=== PATIENT | female | born 1960 | race Caucasian/White ===

== ENCOUNTER 2016-09-07 09:49 | Emergency (ER) | payer BC ==
[2016-09-07 11:34] VITALS: BP 128/55
--- NOTE | 2016-09-07 11:51 | UC ---
Respiratory Complaint HPI - HPI Summary HPI Summary: c/o loss of voice, chest burning w/ cough, and nasal drainage, feels tired and hot. body aches 3 days ago started. throat pain with swallowing. [ End ] - History of Current Complaint Chief Complaint: UCRespiratory Stated Complaint: LOST VOICE,SORE THROAT,COUGH,FEVER Time Seen by Provider: 09/07/16 11:36 Hx Obtained From: Patient Hx Last Menstrual Period: 12/04/2012 ?: No Onset/Duration: Gradual Onset Timing: Constant Severity Initially: Mild Severity Currently: Moderate Associated Signs And Symptoms: Positive: Fever, URI, Nasal Congestion, Hoarseness - Risk Factors Pulmonary Embolism Risk Factors: Negative Cardiac Risk Factors: Negative Pseudomonas Risk Factors: Negative Tuberculosis Risk Factors: Negative - Allergies/Home Medications Allergies/Adverse Reactions: Allergies Allergy/AdvReac Type Severity Reaction Status Date / Time Clarithromycin [From Biaxin] Allergy Severe Abdominal Verified 09/07/16 11:36 Pain Erythromycin Allergy Severe lips turn Verified 09/07/16 11:36 blue Prednisone Allergy Severe Shortness Verified 09/07/16 11:36 of Breath Penicillins Allergy Intermediate syncope Verified 09/07/16 11:36 Sulfa Drugs Allergy Intermediate Rash Verified 09/07/16 11:36 Latex Allergy SENSITIVITY- Verified 09/07/16 11:36 RASH, PEANUTS Allergy Severe ANAPHYLACTI Uncoded 09/07/16 11:36 C tetracyclene Allergy Severe lips turn Uncoded 09/07/16 11:36 blue Home Medications: Home Medications Estradiol (NF) 0.5 mg PO DAILY 09/07/16 [History Confirmed 09/07/16] PMH/Surg Hx/FS Hx/Imm Hx Previously Healthy: Yes Endocrine History Of: Reports: Diabetes - borderline- NO MEDICATION FOR, Thyroid Disease - hypothyroid Cardiovascular History Of: Reports: Hypertension - ON MEDICATION FOR Denies: Cardiac Disorders Respiratory History Of: Denies: COPD, Asthma GI/ History Of: Reports: Kidney Stones - HX OF IN THE PAST Denies: Ulcer Neurological History Of: Reports: Migraine - TAKES PROPRANOLOL FOR Psychological History Of: Reports: Depression - ON MEDICATION FOR - Surgical History Surgical History: Yes Surgery Procedure, Year, and Place: Fatty tumor removed from LEFT abdomen- [place]. hysterectomy-[facility]. SINUS SURGERY- 15 YEARS AGO- [place]. TUBAL LIGATION- 21 YEARS AGO- [place]. TONSILLECTOMY A CHILD. Removal of abd mass at [facility] - Family History Known Family History: Positive: Cardiac Disease, Diabetes - Social History Occupation: Unemployed Lives: With Family Alcohol Use: Rare Substance Use Type: None Smoking Status (MU): Former Smoker Amount Used/How Often: 1/2 PPD X 20 YEARS Have You Smoked in the Last Year: No When Did the Patient Quit Smoking/Using Tobacco: 10 YEARS AGO - Immunization History Most Recent Influenza Vaccination: JUN 2015 Review of Systems Constitutional: Fever, Chills, Fatigue Skin: Negative Eyes: Negative ENT: Sore Throat, Ear Ache, Nasal Discharge Respiratory: Cough Cardiovascular: Negative Gastrointestinal: Negative Genitourinary: Negative Motor: Negative Neurovascular: Negative Musculoskeletal: Myalgia Neurological: Negative Psychological: Anxious All Other Systems Reviewed And Are Negative: Yes Physical Exam Triage Information Reviewed: Yes Appearance: Well-Appearing, No Pain Distress Vital Signs: Initial Vital Signs Temp 98.5 F 09/07/16 11:30 Pulse 62 09/07/16 11:30 Resp 14 09/07/16 11:30 BP 128/55 09/07/16 11:30 Pulse Ox 99 09/07/16 11:30 Vital Signs Reviewed: Yes Eye Exam: Normal ENT Exam: Normal ENT: Positive: Normal ENT inspection, Hearing grossly normal, Pharynx normal, Nasal congestion, Nasal drainage, TMs normal. Negative: Pharyngeal erythema, TM bulging, Tonsillar swelling, Tonsillar exudate, Trismus Dental Exam: Normal Neck exam: Normal Neck: Positive: 1 Respiratory Exam: Normal Respiratory: Positive: Chest non-tender, Lungs clear, Normal breath sounds, No respiratory distress, No accessory muscle use. Negative: Respiratory distress Cardiovascular Exam: Normal Musculoskeletal Exam: Normal Neurological Exam: Normal Psychological Exam: Normal Skin Exam: Normal Diagnostic Evaluation - Laboratory O2 Sat by Pulse Oximetry: 99 Respiratory Course/Dx - Differential Dx/Diagnosis Differential Diagnosis/HQI/PQRI: Bronchitis, Lower Resp Infection, Sinusitis Provider Diagnoses: Viral Pharyngitis / URI Discharge - Discharge Plan Condition: Good Disposition: HOME Prescriptions: Fluticasone NASAL SPRAY 50MCG* [Flonase NASAL SPRAY 50MCG*] 2 spray BOTH NARES DAILY #1 btl Lidocaine 2% VISCOUS* 5 ml PO Q3HR PRN #1 btl PRN Reason: Pain Patient Education Materials: Pharyngitis (ED) Referrals: FLORENCIO Morley [Primary Care Provider] - 3 Days Additional Instructions: You have been diagnosed with a viral pharyngitis / viral infection at this time.
== END 2016-09-07 12:01 | disposition home or self-care (01) ==
LOC: UCCORT 09:49
DX: J02.8 Acute pharyngitis due to other specified organisms (principal); I10 Essential (primary) hypertension; F32.9 Major depressive disorder, single episode, unspecified; Z87.891 Personal history of nicotine dependence; Z88.0 Allergy status to penicillin; Z88.1 Allergy status to other antibiotic agents; Z88.2 Allergy status to sulfonamides; Z88.8 Allergy status to other drugs, medicaments and biological substances
CPT/HCPCS: 99212; G0463

== ENCOUNTER 2016-09-11 09:19 | Emergency (ER) | payer BC ==
[2016-09-11 10:51] VITALS: BP 124/57
[2016-09-11] MEDS ORDERED: Acetaminophen TAB* 325 MG PO ONE (11:01)
--- NOTE | 2016-09-11 11:07 | UC ---
Respiratory Complaint HPI - HPI Summary HPI Summary: Dx with viral illness on 09/07. now feels she is heavy chested, hard to breath, feverish. cough present. - History of Current Complaint Chief Complaint: UCRespiratory Stated Complaint: COUGH Time Seen by Provider: 09/11/16 10:37 Hx Obtained From: Patient Hx Last Menstrual Period: 12/04/2012 ?: No Onset/Duration: Sudden Onset, Lasting Days Timing: Constant Severity Initially: Moderate Severity Currently: Severe Pain Intensity: 8 Pain Scale Used: 0-10 Numeric Character: Cough: Productive Aggravating Factors: Deep Breaths, Recumbent Position Alleviating Factors: Nothing Associated Signs And Symptoms: Positive: Dyspnea, Fever, Wheezing, URI, Hoarseness - Risk Factors Pulmonary Embolism Risk Factors: Negative - Allergies/Home Medications Allergies/Adverse Reactions: Allergies Allergy/AdvReac Type Severity Reaction Status Date / Time Clarithromycin [From Biaxin] Allergy Severe Abdominal Verified 09/11/16 10:37 Pain Erythromycin Allergy Severe lips turn Verified 09/11/16 10:37 blue Prednisone Allergy Severe Shortness Verified 09/11/16 10:37 of Breath Penicillins Allergy Intermediate syncope Verified 09/11/16 10:37 Sulfa Drugs Allergy Intermediate Rash Verified 09/11/16 10:37 Latex Allergy SENSITIVITY- Verified 09/11/16 10:37 RASH, PEANUTS Allergy Severe ANAPHYLACTI Uncoded 09/11/16 10:37 C tetracyclene Allergy Severe lips turn Uncoded 09/11/16 10:37 blue Home Medications: Home Medications [id number] [Tylenol Sinus Congestion 5-325-200 mg] 2 tab PO ONCE PRN 09/11/16 [History Confirmed 09/11/16] PMH/Surg Hx/FS Hx/Imm Hx Previously Healthy: Yes Endocrine History Of: Reports: Diabetes - borderline- NO MEDICATION FOR, Thyroid Disease - hypothyroid Cardiovascular History Of: Reports: Cardiac Disorders - "cardiac event", Hypertension - ON MEDICATION FOR Respiratory History Of: Denies: COPD, Asthma GI/ History Of: Reports: Kidney Stones - HX OF IN THE PAST Denies: Ulcer Neurological History Of: Reports: Migraine - TAKES PROPRANOLOL FOR Psychological History Of: Reports: Depression - ON MEDICATION FOR - Surgical History Surgical History: Yes Surgery Procedure, Year, and Place: Fatty tumor removed from LEFT abdomen- [place]. hysterectomy-[facility]. SINUS SURGERY- 15 YEARS AGO- [place]. TUBAL LIGATION- 21 YEARS AGO- [place]. TONSILLECTOMY A CHILD. Removal of abd mass at [facility]. hysterectomy - Family History Known Family History: Positive: Cardiac Disease, Diabetes - Social History Alcohol Use: Rare Substance Use Type: None Smoking Status (MU): Former Smoker Amount Used/How Often: 1/2 PPD X 20 YEARS Have You Smoked in the Last Year: No When Did the Patient Quit Smoking/Using Tobacco: 10 YEARS AGO - Immunization History Most Recent Influenza Vaccination: JUN 2015 Review of Systems Constitutional: Fever Skin: Negative Eyes: Negative ENT: Negative Respiratory: Shortness Of Breath, Cough Cardiovascular: Negative Gastrointestinal: Negative Genitourinary: Negative Motor: Negative Neurovascular: Negative Musculoskeletal: Negative Neurological: Headache Psychological: Negative All Other Systems Reviewed And Are Negative: Yes Physical Exam Triage Information Reviewed: Yes Appearance: Well-Nourished, Ill-Appearing, Pain Distress Vital Signs: Initial Vital Signs Temp 98.1 F 09/11/16 10:40 Pulse 60 09/11/16 10:40 Resp 18 09/11/16 10:40 BP 124/57 09/11/16 10:40 Pulse Ox 100 09/11/16 10:40 Vital Signs Reviewed: Yes Eye Exam: Normal Eyes: Positive: Conjunctiva Clear ENT Exam: Normal ENT: Positive: Normal ENT inspection, Hearing grossly normal, Pharyngeal erythema, TMs normal Dental Exam: Normal Neck exam: Normal Neck: Positive: Supple, Nontender, No Lymphadenopathy Respiratory Exam: Normal Respiratory: Positive: Decreased breath sounds, Wheezing, Inspiration, Other: - tender on inspriation Cardiovascular Exam: Normal Cardiovascular: Positive: RRR, No Murmur, Pulses Normal Abdominal Exam: Normal Abdomen Description: Positive: Nontender, No Organomegaly, Soft Bowel Sounds: Positive: Present Musculoskeletal Exam: Normal Musculoskeletal: Positive: Strength Intact, ROM Intact, No Edema Neurological Exam: Normal Neurological: Positive: Alert, Muscle Tone Normal Psychological Exam: Normal Skin Exam: Normal UC Diagnostic Evaluation - Laboratory O2 Sat by Pulse Oximetry: 100 Respiratory Course/Dx - Course Course Of Treatment: hx obtained, ekg performed due to patients complaint, exam performed, chest xray obtained and is negative, tylenol given. meds prescribed. - Differential Dx/Diagnosis Differential Diagnosis/HQI/PQRI: Asthma, Bronchitis, Influenza, Laryngitis, Pneumothorax, Pulmonary Embolism, SARS, Sinusitis Provider Diagnoses: bronchitis Discharge - Discharge Plan Condition: Stable Disposition: HOME Prescriptions: Albuterol HFA INHALER* [Ventolin HFA Inhaler*] 1 - 2 puff INH Q4H PRN #1 mdi PRN Reason: Cough guaiFENesin/CODIEN 100MG-10MG* [Robitussin AC 100Mg-10Mg*] 10 ml PO BEDTIME PRN #100 udc MDD 10 ml PRN Reason: Cough Forms: *Work Release Additional Instructions: take the medications as prescibed, increase your fluid intake and get plenty of rest. Expect symptoms to last a few weeks.
--- NOTE | 2016-09-11 12:53 | RAD ---
INDICATION: Cough and chest pressure COMPARISON: None TECHNIQUE: PA and lateral views of the chest were obtained. FINDINGS: The heart and mediastinum are normal in size and contour. The lungs are grossly clear. There is no evidence of large pleural effusion. Visualized bones are normal for the patient's age. There is no radiographic evidence of free air beneath the diaphragm IMPRESSION: No radiographic evidence of acute cardiopulmonary disease.
== END 2016-09-11 12:59 | disposition home or self-care (01) ==
LOC: UCCORT 09:19
DX: J40 Bronchitis, not specified as acute or chronic (principal); Z88.1 Allergy status to other antibiotic agents; Z88.0 Allergy status to penicillin; Z88.2 Allergy status to sulfonamides; I10 Essential (primary) hypertension; Z87.891 Personal history of nicotine dependence
CPT/HCPCS: 71020; 93005; 99202; A9270-GY; G0463

== ENCOUNTER 2019-09-07 17:07 | Emergency (ER) | payer BC ==
[2019-09-07 19:07] VITALS: BP 137/63
[2019-09-07 19:25] LABS: Influenza A Molecular Negative (Negative); Influenza B Molecular Negative (Negative)
--- NOTE | 2019-09-07 20:08 | UC ---
FLU HPI - HPI Summary HPI Summary: 58-year-old female presents with 4 day history of fatigue, nasal congestion, sinus pressure, postnasal drip, sore throat, right ear pain, and dry nonproductive cough. States she was seen by her care provider earlier today and diagnosed with influenza although was never tested. 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 Denies fever, chills, body aches, ear drainage, dysphagia, chest pain, shortness of breath, wheezing, abdominal pain, nausea, vomiting, or diarrhea. - History of Current Complaint Chief Complaint: UCRespiratory Stated Complaint: FLU LIKE SYMPTOMS Time Seen by Provider: 09/07/19 19:31 Hx Obtained From: Patient Hx Last Menstrual Period: 12/04/2012 Pain Intensity: 0 - Allergy/Home Medications Allergies/Adverse Reactions: Allergies Allergy/AdvReac Type Severity Reaction Status Date / Time clarithromycin [From Biaxin] Allergy Severe Abdominal Verified 09/07/19 18:49 Pain erythromycin base Allergy Severe lips turn Verified 09/07/19 18:49 blue prednisone Allergy Severe Shortness Verified 09/07/19 18:49 of Breath Penicillins Allergy Intermediate syncope Verified 09/07/19 18:49 Sulfa (Sulfonamide Allergy Intermediate Rash Verified 09/07/19 18:49 Antibiotics) latex Allergy Unknown sensitivity Verified 09/07/19 18:49 ,rash PEANUTS Allergy Severe ANAPHYLACTI Uncoded 09/07/19 18:49 C tetracyclene Allergy Severe lips turn Uncoded 09/07/19 18:49 blue Home Medications: Home Medications Atorvastatin* [Lipitor*] 10 mg PO DAILY 09/07/19 [History Confirmed 09/07/19] Benzonatate CAP* [Tessalon 100 MG CAP*] 100 mg PO TID PRN 09/07/19 [History Confirmed 09/07/19] Pantoprazole TAB * [Protonix TAB*] 40 mg PO DAILY 09/07/19 [History Confirmed ] PMH/Surg Hx/FS Hx/Imm Hx Endocrine History: Dyslipidemia Cardiovascular History: Hypertension Respiratory History: Other - Reactive airway disease GI/ History: Gastroesophageal Reflux - Surgical History Surgical History: Yes Surgery Procedure, Year, and Place: Fatty tumor removed from LEFT abdomen- [place]. hysterectomy-[facility]. SINUS SURGERY- 15 YEARS AGO- [place]. TUBAL LIGATION- 21 YEARS AGO- [place]. TONSILLECTOMY A CHILD. Removal of abd mass at [facility]. hysterectomy. cholycystectomy - Family History Known Family History: Positive: Cardiac Disease, Diabetes - Social History Alcohol Use: None Substance Use Type: None Smoking Status (MU): Light Every Day Tobacco Smoker Amount Used/How Often: 1/2 PPD X 20 YEARS Have You Smoked in the Last Year: No When Did the Patient Quit Smoking/Using Tobacco: 10 YEARS AGO - Immunization History Most Recent Influenza Vaccination: JUN 2015 Review of Systems All Other Systems Reviewed And Are Negative: Yes Constitutional: Positive: Fatigue. Negative: Fever, Chills Skin: Negative: Rash Eyes: Negative: Drainage, Eye Redness ENT: Positive: Sore Throat, Ear Ache, Nasal Discharge, Sinus Congestion, Sinus Pain/Tenderness Respiratory: Positive: Cough. Negative: Shortness Of Breath Cardiovascular: Negative: Palpitations, Chest Pain Gastrointestinal: Negative: Abdominal Pain, Vomiting, Diarrhea, Nausea Genitourinary: Positive: Negative Musculoskeletal: Negative: Myalgia Neurological: Negative: Headache Is Patient Immunocompromised?: No Physical Exam - Summary Physical Exam Summary: GENERAL APPEARANCE: Alert and cooperative, and appears to be in no acute distress. EYES: Conjunctiva clear. No drainage. EARS: External auditory canals and tympanic membranes clear, hearing grossly intact. NOSE: Moderate nasal congestion. No nasal discharge. Maxillary sinus tenderness. THROAT: Pharyngeal cobblestoning with postnasal drip. Surgically absent tonsils. Uvula midline. NECK: Neck supple, non-tender without lymphadenopathy. CARDIAC: Normal S1 and S2. No S3, S4 or murmurs. Rhythm is regular. There is no peripheral edema, cyanosis or pallor. Extremities are warm and well perfused. Capillary refill is less than 2 seconds. Peripheral pulses intact. LUNGS: Clear to auscultation without rales, rhonchi, wheezing or diminished breath sounds. Dry nonproductive cough. ABDOMEN: Positive bowel sounds. Soft, nondistended, nontender. No guarding or rebound. No masses or hepatosplenomegally. MUSKULOSKELETAL: ROM intact to all extremities. No joint erythema or tenderness. Normal muscular development. Normal gait. SKIN: Skin normal color, texture and turgor with no lesions or eruptions. Triage Information Reviewed: Yes Vital Signs: Initial Vital Signs Temp 98.8 F 09/07/19 18:53 Pulse 80 09/07/19 18:53 Resp 16 09/07/19 18:53 BP 137/63 09/07/19 18:53 Pulse Ox 100 09/07/19 18:53 Vital Signs Reviewed: Yes Flu Course/Dx - Course Course Of Treatment: 58-year-old female presents with 4 day history of fatigue, nasal congestion, sinus pressure, postnasal drip, sore throat, right ear pain, and dry nonproductive cough. States she was seen by her care provider earlier today and diagnosed with influenza although was never tested. 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 Denies fever, chills, body aches, ear drainage, dysphagia, chest pain, shortness of breath, wheezing, abdominal pain, nausea, vomiting, or diarrhea. Afebrile. Vital signs stable. Patient had moderate nasal congestion, maxillary sinus tenderness, normal TMs, pharyngeal cobblestoning with postnasal drip, surgically absent tonsils, no cervical lymphadenopathy, clear bilateral breath sounds, dry nonproductive cough , and otherwise unremarkable exam. Rapid flu test was negative. Reviewed results with the patient. We discussed that her symptoms were likely from a viral upper respiratory infection however I did caution her that even with a negative flu she could potentially be infectious to her granddaughter and recommended that alternative caregiving be explored until her symptoms have subsided. I'm recommending continued symptomatic care at this time. She is to follow-up with her primary care provider in 5-7 days if symptoms are not improving. Anticipatory guidance warning symptoms were reviewed with the patient. Verbalizes understanding and agrees with plan of care. - Differential Dx/Diagnosis Differential Diagnosis/HQI/PQRI: Bronchitis, Influenza, Pneumonia, Upper Respiratory Infection Provider Diagnosis: Viral URI with cough Discharge ED - Sign-Out/Discharge Documenting (check all that apply): Patient Departure All imaging exams completed and their final reports reviewed: No Studies - Discharge Plan Condition: Stable Disposition: HOME Patient Education Materials: Upper Respiratory Infection (ED) Referrals: No Primary Care Phys,NOPCP [Primary Care Provider] - Additional Instructions: The flu test performed in the clinic today was negative. Your history and exam are consistent with a viral upper respiratory infection. Viral infections do not respond to antibiotics and are limited to the treatment of symptoms. Viral infections typically run their course in 7-10 days. Drink plenty of fluids to avoid dehydration especially if you are running any fever. Use a saline rinse kit such as Neti Pot or NeilMed at least twice a day to help thin secretions and promote drainage of the sinuses. Use over the counter fluticasone (Flonase) nasal spray 2 sprays each nostril once daily. Use the Tessalon Perles prescribed to you as directed as needed for cough. Take over the counter acetaminophen (Tylenol) or ibuprofen (Advil, Motrin) according to directions as needed for pain or fever. Use salt water gargles several times a day if you have a sore throat. You may also use Chloraseptic spray or Cepacol lonzenges according to directions which contain a numbing medication and can provide some temporary relief from your sore throat. Follow up with your primary care provider in 5-7 days if symptoms persist. Seek immediate medical attention in the emergency room if you have fever greater than 100.5 F despite taking acetaminophen or ibuprofen, have chest pain , difficulty breathing, are unable to swallow, or have any worsening of symptoms. - Billing Disposition and Condition Condition: STABLE Disposition: Home
== END 2019-09-07 20:21 | disposition home or self-care (01) ==
LOC: UCCORT 17:07
DX: J06.9 Acute upper respiratory infection, unspecified (principal); R05 Cough; K21.9 Gastro-esophageal reflux disease without esophagitis; I10 Essential (primary) hypertension; E78.5 Hyperlipidemia, unspecified; F17.210 Nicotine dependence, cigarettes, uncomplicated; Z88.0 Allergy status to penicillin; Z88.1 Allergy status to other antibiotic agents; Z88.2 Allergy status to sulfonamides; Z88.8 Allergy status to other drugs, medicaments and biological substances; Z91.040 Latex allergy status; Z91.010 Allergy to peanuts; Z79.899 Other long term (current) drug therapy
CPT/HCPCS: 99211; G0463